=== PATIENT | male | born 1975 | race African-American/Black ===

== ENCOUNTER 2016-10-13 18:32 | Emergency (ER) | payer MEDICAID, MEDICARE ==
[~2016-10-13] VITALS: Ht 175.3 cm; Wt 90.7 kg
[~2016-10-13 18:32] MED LIST: ARIP5TAB13; CHOL500021; EST0625T; HYDR200T; LEVE750T15; LORA2TAB89; SERT-135; TRIA50CA40; [UNRECOGNIZED DRUG - CODE]
[2016-10-13 20:24] VITALS: BP 152/94
== END 2016-10-13 21:08 | disposition home or self-care (01) ==
LOC: ER 18:36
DX: S82.832A Other fracture of upper and lower end of left fibula, initial encounter for closed fracture (principal); I10 Essential (primary) hypertension; Z88.6 Allergy status to analgesic agent; Z88.8 Allergy status to other drugs, medicaments and biological substances; Z87.891 Personal history of nicotine dependence; W01.0XXA Fall on same level from slipping, tripping and stumbling without subsequent striking against object, initial encounter; Y93.89 Activity, other specified; Y99.8 Other external cause status; Y92.098 Other place in other non-institutional residence as the place of occurrence of the external cause
CPT/HCPCS: 73610